=== PATIENT | female | born 1950 | race African-American/Black ===

== ENCOUNTER 2021-07-22 11:51 | Inpatient (IN) | payer MEDICARE, OTHER ==
[~2021-07-22] VITALS: Ht 172.7 cm; Wt 137.9 kg
[2021-07-22] MEDS ORDERED: METF-873 PO (12:01)
[2021-07-22] MEDS ORDERED: APIX5TAB4 PO (12:01)
[2021-07-22] MEDS ORDERED: ONDANSETRON HCL 4MG/2ML INJ IV STA (13:05)
[2021-07-22] MEDS ORDERED: MORPHINE SULFATE 4 MG/ML CPJ (NOT FOR IM USE) IV STA (13:05)
[2021-07-22] MEDS ORDERED: SODIUM CHLORIDE 0.9% 1,000 ML IV ONE (13:15)
[2021-07-22 13:28] LABS: BASOPHILS % 0.4 % (0.0-2.0); EOSINOPHILS % 3.8 % (0.0-5.0); HEMATOCRIT. 21.6 % (36.0-48.0); MEAN CORPUSCULAR HEMOGLOBIN 29.1 pg (28.0-32.0); MEAN CORPUSCULAR VOLUME 91.6 fL (81.0-99.0); MEAN PLATELET VOLUME 8.4 fl (7.4-10.4); MONOCYTES % 8.1 % (2.0-8.0); NEUTROPHILS % 72.7 % (40.0-76.0); PLATELET 329 x1000/uL (130-400); RED BLOOD CELL COUNT 2.36 mill/uL (4.2-5.4); RED CELL DISTRIBUTION WIDTH 19.5 % (11.6-14.6)
[2021-07-22 13:35] LABS: CHLORIDE 110 mEq/L (98-107)
[2021-07-22 13:39] LABS: INR 1.2; PROTHROMBIN TIME 12.4 sec (9.6-11.0)
[2021-07-22 13:42] LABS: HEMOGLOBIN. 6.9 g/dL (12.0-16.0)
[2021-07-22] MEDS ORDERED: SODIUM CHLORIDE 0.9% 1000ML BAG (SEPSIS BOLUS) IV NR (15:00)
[2021-07-22] MEDS ORDERED: PIPERACILLIN/TAZ 3.375G PREMIX 50 ML IV ONE (15:00)
[2021-07-22] MEDS ORDERED: PIPERACILLIN/TAZOBACTAM 3.375G in DEXT 5% WATER 50ML IV NR (16:00)
[2021-07-22] MEDS ORDERED: VANCOMYCIN 1GM PMX (XELLIA) 200 ML IV NR (16:00)
[2021-07-22] MEDS ORDERED: IOHEXOL-350 100 ML BOTTLE ONE (17:27)
[2021-07-22 19:55] VITALS: BP 102/48
[2021-07-22 20:00] VITALS: BP 115/47
[2021-07-22] MEDS ORDERED: DEXTROSE 50% WATER 50ML SYRINGE IV PRN (22:15)
[2021-07-22] MEDS: HYDROCODONE/ACETAMINOPHEN 10/325MG TABLET PO PRN (22:28)
[2021-07-22 23:04] VITALS: BP 116/45
[2021-07-22] MEDS ORDERED: LEVO100T9 MT (23:18)
[2021-07-22] MEDS ORDERED: LOSA25TA26 MT (23:18)
[2021-07-22] MEDS ORDERED: SIMV-46 MT (23:18)
[2021-07-22] MEDS ORDERED: AMLO5TAB88 MT (23:18)
[2021-07-22 23:19] VITALS: BP 108/47
[2021-07-23] VITALS (12 sets, daily range): BP systolic 102–128; BP diastolic 43–62
[2021-07-23] MEDS: HYDROCODONE/ACETAMINOPHEN 10/325MG TABLET PO PRN ×4 (03:48→20:42)
[2021-07-23] MEDS: INSULIN LISPRO 100 UNITS/ML SUBCUT SCH ×3 (06:20→17:45)
[2021-07-23] MEDS: BLOOD SUGAR DIAGNOSTIC STRIP TEST SCH ×3 (06:20→17:45)
[2021-07-23] MEDS: LEVOTHYROXINE SODIUM 100MCG TABLET PO SCH (06:20)
[2021-07-23] MEDS ORDERED: PANTOPRAZOLE 40MG DR TABLET PO SCH (07:20)
[2021-07-23 09:29] LABS: BASOPHILS % 0.4 % (0.0-2.0); EOSINOPHILS % 6.8 % (0.0-5.0); HEMATOCRIT. 26.2 % (36.0-48.0); HEMOGLOBIN. 8.6 g/dL (12.0-16.0); MEAN CORPUSCULAR HEMOGLOBIN 29.4 pg (28.0-32.0); MEAN CORPUSCULAR VOLUME 89.5 fL (81.0-99.0); MEAN PLATELET VOLUME 7.4 fl (7.4-10.4); MONOCYTES % 8.5 % (2.0-8.0); NEUTROPHILS % 70.3 % (40.0-76.0); PLATELET 323 x1000/uL (130-400); RED BLOOD CELL COUNT 2.93 mill/uL (4.2-5.4); RED CELL DISTRIBUTION WIDTH 17.8 % (11.6-14.6)
[2021-07-23 09:38] LABS: CHLORIDE 112 mEq/L (98-107)
[2021-07-23 09:45] LABS: LDL CHOLESTEROL 110 mg/dL (5-100)
[2021-07-23 09:46] LABS: HDL CHOLESTEROL 38 mg/dL (40-59)
[2021-07-23] MEDS ORDERED: NALOXONE HCL 0.4MG/ML VIAL IV PRN (17:15)
[2021-07-23] MEDS ORDERED: BISACODYL 5MG TABLET PO PRN (19:45)
[2021-07-23] MEDS ORDERED: BISACODYL 10MG SUPP PR PRN (19:45)
[2021-07-23] MEDS: ATORVASTATIN CALCIUM 40MG TABLET PO SCH (20:43)
[2021-07-24] VITALS: BP 122/47
[2021-07-24] MEDS ORDERED: VANCOMYCIN 1.25GM PMX (XELLIA) 250 ML IV SCH (02:00)
[2021-07-24 04:00] VITALS: BP 115/42
[2021-07-24] MEDS: HYDROCODONE/ACETAMINOPHEN 10/325MG TABLET PO PRN ×3 (05:24→19:05)
[2021-07-24 06:23] LABS: BASOPHILS % 0.2 % (0.0-2.0); EOSINOPHILS % 6.9 % (0.0-5.0); HEMATOCRIT. 26.9 % (36.0-48.0); HEMOGLOBIN. 8.6 g/dL (12.0-16.0); LYMPHOCYTES % 13.9 % (20.0-50.0); MEAN CORPUSCULAR HEMOGLOBIN 28.9 pg (28.0-32.0); MEAN PLATELET VOLUME 7.6 fl (7.4-10.4); MONOCYTES % 9.2 % (2.0-8.0); NEUTROPHILS % 69.8 % (40.0-76.0); PLATELET 329 x1000/uL (130-400); RED BLOOD CELL COUNT 2.98 mill/uL (4.2-5.4); RED CELL DISTRIBUTION WIDTH 18.3 % (11.6-14.6)
[2021-07-24] MEDS: LEVOTHYROXINE SODIUM 100MCG TABLET PO SCH (06:25)
[2021-07-24 06:46] LABS: CHLORIDE 111 mEq/L (98-107)
[2021-07-24 06:56] LABS: FOLIC ACID (FOLATE) SERUM 12.9 ng/mL (>5.38)
[2021-07-24 06:57] LABS: TOTAL IRON BINDING CAPACITY 164 ug/dL (250-450)
[2021-07-24 08:04] VITALS: BP 113/55
[2021-07-24] MEDS: PANTOPRAZOLE SODIUM 40 MG/VIAL IV SCH (08:44)
[2021-07-24 11:30] VITALS: BP 106/51
[2021-07-24 16:00] VITALS: BP 123/58
[2021-07-24 18:32] LABS: CLARITY URINE CLOUDY (CLEAR); COLOR URINE DARK YELLOW (YELLOW); KETONES URINE NEGATIVE (NEGATIVE); LEUKOCYTE ESTERASE URINE 2+ (NEGATIVE); NITRITE URINE NEGATIVE (NEGATIVE); OCCULT BLOOD URINE 2+ (NEGATIVE); PROTEIN URINE 1+ (NEGATIVE); SPECIFIC GRAVITY URINE 1.025 (1.005-1.030)
[2021-07-24 20:00] VITALS: BP 109/41
[2021-07-24] MEDS: VANCOMYCIN 1500MG in DEXTROSE 5% WATER 250ML IV SCH (21:53)
[2021-07-24] MEDS: ATORVASTATIN CALCIUM 40MG TABLET PO SCH (21:53)
[2021-07-25] VITALS: BP 110/40
[2021-07-25] MEDS: HYDROCODONE/ACETAMINOPHEN 10/325MG TABLET PO PRN ×4 (01:21→21:29)
[2021-07-25 04:00] VITALS: BP 118/49
[2021-07-25] MEDS: LEVOTHYROXINE SODIUM 100MCG TABLET PO SCH (05:49)
[2021-07-25 06:20] LABS: BASOPHILS % 0.3 % (0.0-2.0); EOSINOPHILS % 5.4 % (0.0-5.0); HEMATOCRIT. 26.1 % (36.0-48.0); HEMOGLOBIN. 8.4 g/dL (12.0-16.0); LYMPHOCYTES % 12.7 % (20.0-50.0); MEAN CORPUSCULAR HEMOGLOBIN 28.8 pg (28.0-32.0); MEAN PLATELET VOLUME 7.5 fl (7.4-10.4); MONOCYTES % 11.6 % (2.0-8.0); PLATELET 328 x1000/uL (130-400); RED BLOOD CELL COUNT 2.94 mill/uL (4.2-5.4); RED CELL DISTRIBUTION WIDTH 17.7 % (11.6-14.6)
[2021-07-25 07:18] LABS: CHLORIDE 111 mEq/L (98-107)
[2021-07-25 08:00] VITALS: BP 119/62
[2021-07-25] MEDS: PANTOPRAZOLE SODIUM 40 MG/VIAL IV SCH (10:15)
[2021-07-25 12:00] VITALS: BP 122/53
[2021-07-25] MEDS ORDERED: LIDOCAINE HCL 1% 10 MG/ML 10ML VIAL ONE (12:33)
[2021-07-25] MEDS ORDERED: IOHEXOL-300 100 ML BOTTLE ONE (12:34)
[2021-07-25 16:00] VITALS: BP 135/65
[2021-07-25 20:00] VITALS: BP 119/66
[2021-07-25] MEDS: VANCOMYCIN 1500MG in DEXTROSE 5% WATER 250ML IV SCH (21:28)
[2021-07-25] MEDS: ATORVASTATIN CALCIUM 40MG TABLET PO SCH (21:28)
[2021-07-26] VITALS: BP 135/88
[2021-07-26 04:00] VITALS: BP 118/58
[2021-07-26] MEDS: HYDROCODONE/ACETAMINOPHEN 10/325MG TABLET PO PRN ×2 (05:15→22:09)
[2021-07-26 08:00] VITALS: BP 130/58
[2021-07-26] MEDS: PANTOPRAZOLE SODIUM 40 MG/VIAL IV SCH (09:26)
[2021-07-26] MEDS: LEVOTHYROXINE SODIUM 100MCG TABLET PO SCH (09:26)
[2021-07-26] MEDS ORDERED: MORPHINE SULFATE 2 MG/ML CPJ (NOT FOR IM USE) IV NR (11:30)
[2021-07-26 12:00] VITALS: BP 131/59
[2021-07-26] MEDS: METHYLPREDNISOLONE SOD SUCC 40 MG/ML VIAL IV SCH ×2 (13:57→22:08)
[2021-07-26 16:00] VITALS: BP 141/60
[2021-07-26 20:00] VITALS: BP 127/60
[2021-07-26] MEDS: ATORVASTATIN CALCIUM 40MG TABLET PO SCH (22:08)
[2021-07-27] VITALS (8 sets, daily range): BP systolic 118–162; BP diastolic 50–82
[2021-07-27] MEDS: VANCOMYCIN 1500MG in DEXTROSE 5% WATER 250ML IV SCH ×2 (00:16→22:40)
[2021-07-27] MEDS: METHYLPREDNISOLONE SOD SUCC 40 MG/ML VIAL IV SCH ×4 (03:00→20:38)
[2021-07-27] MEDS: OXYBUTYNIN CHLORIDE 5MG TABLET PO SCH ×3 (06:00→22:40)
[2021-07-27] MEDS: LEVOTHYROXINE SODIUM 100MCG TABLET PO SCH (07:06)
[2021-07-27 08:03] LABS: BASOPHILS % 0.2 % (0.0-2.0); CHLORIDE 110 mEq/L (98-107); EOSINOPHILS % 0.1 % (0.0-5.0); HEMATOCRIT. 28.7 % (36.0-48.0); HEMOGLOBIN. 9.2 g/dL (12.0-16.0); LYMPHOCYTES % 10.8 % (20.0-50.0); MEAN CORPUSCULAR HEMOGLOBIN 28.4 pg (28.0-32.0); MEAN CORPUSCULAR VOLUME 88.9 fL (81.0-99.0); MEAN PLATELET VOLUME 7.8 fl (7.4-10.4); MONOCYTES % 4.6 % (2.0-8.0); NEUTROPHILS % 84.3 % (40.0-76.0); PLATELET 343 x1000/uL (130-400); RED BLOOD CELL COUNT 3.23 mill/uL (4.2-5.4); RED CELL DISTRIBUTION WIDTH 17.3 % (11.6-14.6)
[2021-07-27 08:12] LABS: CREATINE KINASE 45 IU/L (26-192)
[2021-07-27] MEDS: KETOCONAZOLE 200MG TABLET PO SCH (11:26)
[2021-07-27] MEDS: CELECOXIB 200MG CAPSULE PO SCH ×2 (11:27→17:00)
[2021-07-27] MEDS: PANTOPRAZOLE SODIUM 40 MG/VIAL IV SCH (11:27)
[2021-07-27] MEDS: FOLIC ACID 1MG TABLET PO SCH (11:27)
[2021-07-27] MEDS ORDERED: P20 MT (15:31)
[2021-07-27] MEDS ORDERED: HYDR-4009 PO (15:31)
[2021-07-27] MEDS ORDERED: HYDR200T80 MT (15:31)
[2021-07-27] MEDS ORDERED: HYDR-4001 MT (15:31)
[2021-07-27] MEDS: HYDROXYCHLOROQUINE SULFATE 200MG TABLET PO SCH (17:00)
[2021-07-27] MEDS ORDERED: METHOTREXATE SODIUM 2 . 5MG TABLET PO SCH (18:00)
[2021-07-27] MEDS: HYDROCODONE/ACETAMINOPHEN 10/325MG TABLET PO PRN (20:38)
[2021-07-27] MEDS: ATORVASTATIN CALCIUM 40MG TABLET PO SCH (22:39)
[2021-07-28] MEDS: METHYLPREDNISOLONE SOD SUCC 40 MG/ML VIAL IV SCH ×4 (01:57→21:11)
[2021-07-28 04:00] VITALS: BP 131/51
[2021-07-28] MEDS: OXYBUTYNIN CHLORIDE 5MG TABLET PO SCH ×3 (05:24→21:13)
[2021-07-28] MEDS: LEVOTHYROXINE SODIUM 100MCG TABLET PO SCH (05:24)
[2021-07-28 08:00] VITALS: BP 152/55
[2021-07-28] MEDS: KETOCONAZOLE 200MG TABLET PO SCH (09:01)
[2021-07-28] MEDS ORDERED: METHOTREXATE SODIUM 2 . 5MG TABLET PO SCH ×3 (11:00→22:00)
[2021-07-28 12:00] VITALS: BP 144/53
[2021-07-28 13:10] LABS: CHLORIDE 112 mEq/L (98-107)
[2021-07-28 13:44] LABS: BASOPHILS % 0.3 % (0.0-2.0); HEMATOCRIT. 27.3 % (36.0-48.0); HEMOGLOBIN. 8.8 g/dL (12.0-16.0); LYMPHOCYTES % 9.6 % (20.0-50.0); MEAN CORPUSCULAR HEMOGLOBIN 28.3 pg (28.0-32.0); MEAN CORPUSCULAR VOLUME 88.1 fL (81.0-99.0); MEAN PLATELET VOLUME 7.4 fl (7.4-10.4); MONOCYTES % 6.8 % (2.0-8.0); NEUTROPHILS % 83.3 % (40.0-76.0); PLATELET 377 x1000/uL (130-400); RED CELL DISTRIBUTION WIDTH 17.4 % (11.6-14.6)
[2021-07-28] MEDS: HYDROXYCHLOROQUINE SULFATE 200MG TABLET PO SCH (15:50)
[2021-07-28] MEDS: CELECOXIB 200MG CAPSULE PO SCH ×2 (15:51→15:59)
[2021-07-28] MEDS: PANTOPRAZOLE SODIUM 40 MG/VIAL IV SCH (15:51)
[2021-07-28] MEDS: FOLIC ACID 1MG TABLET PO SCH (15:51)
[2021-07-28 16:00] VITALS: BP 136/51
[2021-07-28 20:00] VITALS: BP 145/67
[2021-07-28] MEDS: ATORVASTATIN CALCIUM 40MG TABLET PO SCH (21:11)
[2021-07-29] VITALS: BP 145/67
[2021-07-29 09:07] LABS: ALDOLASE 5.8 U/L (3.3-10.3); ANA IFA Negative (.); G6PD RBC 3.16 x10E6/uL (3.77-5.28)
[2021-07-29 17:09] LABS: ANTI-CARDIOLIPIN AB IGA < 9 APL U/mL (0-11); ANTI-CARDIOLIPIN AB IGG < 9 GPL U/mL (0-14); ANTI-CARDIOLIPIN AB IGM < 9 MPL U/mL (0-12)
[2021-07-29] MEDS ORDERED: CELE-84 MT (20:51)
[2021-07-29] MEDS ORDERED: AZAT50TA18 MT (20:51)
[2021-07-30 09:09] LABS: ANGIOTENSION CONVERTING ENZYME 16 U/L (14-82); CYC CITRULLINATED PEP IgG/IgA 33 units (0-19)
[2021-07-30 17:06] LABS: G6PD QUANTITATIVE 480 (127-427)
[2021-07-30 19:09] LABS: ANTI-MYELOPEROXIDASE AB < 9.0 U/mL (0.0-9.0); ANTI-PROTEINASE 3 ABS < 3.5 U/mL (0.0-3.5)
[2021-07-31 13:06] LABS: ACTIN (SMOOTH MUSCLE) ANTIBODY 9 Units (0-19)
[2021-08-01] MEDS ORDERED: P20 MT (12:47)
[2021-08-01 13:11] LABS: ATYPICAL P-ANCA <1:20 titer (Neg:<1:20); CYTOPLASMIC C-ANCA <1:20 titer (Neg:<1:20); PERINUCLEAR P-ANCA <1:20 titer (Neg:<1:20)
[2021-08-03] MEDS ORDERED: METHOTREXATE SODIUM 2 . 5MG TABLET PO SCH (09:00)
== END 2021-07-29 00:10 | disposition home or self-care (01) | DRG 551 ==
LOC: ER 12:27 → 6WST 16:28 → EDBEDREQTM 16:36 → EDBEDREQSVC 16:36 → EDBEDREQ 16:36 → ENRESERV 17:54 → 6WST 19:58
PROVIDERS: ADMIT Internal Medicine; ATTEND Internal Medicine
PROC: 30233N1 Transfusion of Nonautologous Red Blood Cells into Peripheral Vein, Percutaneous Approach (ICD-10-PCS; 2021-07-22)
PROC: 06H03DZ Insertion of Intraluminal Device into Inferior Vena Cava, Percutaneous Approach (ICD-10-PCS; principal; 2021-07-25)
PROC: B519ZZA Fluoroscopy of Inferior Vena Cava, Guidance (ICD-10-PCS; 2021-07-25)
PROC: B549ZZA Ultrasonography of Inferior Vena Cava, Guidance (ICD-10-PCS; 2021-07-25)
DX: M48.061 Spinal stenosis, lumbar region without neurogenic claudication (principal); I26.99 Other pulmonary embolism without acute cor pulmonale; E43 Unspecified severe protein-calorie malnutrition; I82.411 Acute embolism and thrombosis of right femoral vein; I82.433 Acute embolism and thrombosis of popliteal vein, bilateral; Z68.42 Body mass index [BMI] 45.0-49.9, adult; M33.20 Polymyositis, organ involvement unspecified; N39.0 Urinary tract infection, site not specified; M48.02 Spinal stenosis, cervical region; M47.817 Spondylosis without myelopathy or radiculopathy, lumbosacral region; K44.9 Diaphragmatic hernia without obstruction or gangrene; E78.00 Pure hypercholesterolemia, unspecified; D63.8 Anemia in other chronic diseases classified elsewhere; K43.9 Ventral hernia without obstruction or gangrene; E11.9 Type 2 diabetes mellitus without complications; I10 Essential (primary) hypertension; E66.01 Morbid (severe) obesity due to excess calories; E87.8 Other disorders of electrolyte and fluid balance, not elsewhere classified; E03.9 Hypothyroidism, unspecified; E78.5 Hyperlipidemia, unspecified; Z20.822 Contact with and (suspected) exposure to COVID-19; K59.00 Constipation, unspecified; K76.0 Fatty (change of) liver, not elsewhere classified; R16.0 Hepatomegaly, not elsewhere classified; D25.9 Leiomyoma of uterus, unspecified; K74.60 Unspecified cirrhosis of liver; M51.36 Other intervertebral disc degeneration, lumbar region; R19.7 Diarrhea, unspecified; M06.9 Rheumatoid arthritis, unspecified; Z79.890 Hormone replacement therapy; Z79.899 Other long term (current) drug therapy; Z79.84 Long term (current) use of oral hypoglycemic drugs; Z79.2 Long term (current) use of antibiotics; Z86.711 Personal history of pulmonary embolism; Z90.49 Acquired absence of other specified parts of digestive tract; Z82.49 Family history of ischemic heart disease and other diseases of the circulatory system; Z79.01 Long term (current) use of anticoagulants
CPT/HCPCS: 36415; 37191; 70551; 71045; 71275; 72141; 72146; 72148; 73562; 73718; 74177; 80048; 80053; 80061; 80202; 81003; 82085; 82164; 82550; 82607; 82728; 82746; 82955; 82962; 83036; 83520; 83540; 83550; 83605; 84145; 84443; 84484; 84550; 85025; 85041; 85044; 86147; 86200; 86256; 86431; 86850; 86880; 86900; 86920; 87426; 93005; 93970; 97162; 99285; A6261; C1880; C9113; J2270; J2405; J2543; J2920; J3370; J3490; J7030; J7040; J7060; J8610; P9016; Q9967